=== PATIENT | female | born 1975 | race Caucasian/White ===

== ENCOUNTER → 2019-01-15 10:56 | Outpatient (CLI) | payer OTHER, SELFPAY ==
[2019-01-15 13:03] LABS: RBC Urine None Seen (0-5/HPF)
[2019-01-15 13:23] LABS: Amorphous Sediment Urine 1+; Bacteria Urine Occasional (0-1); Culture Indicated Urine Specimen Cultured; Squamous Epithelial Cell Urine 0-1 /HPF (0-5/HPF); WBC Urine 0-1/HPF (0-5/HPF)
== END ==
PROVIDERS: Visit Provider Registered Nurse
DX: R30.0 Dysuria (principal); R39.9 Unspecified symptoms and signs involving the genitourinary system
CPT/HCPCS: 81015; 87077; 87086; 87186

== ENCOUNTER → 2022-11-02 11:36 | Outpatient (CLI) | payer OTHER, SELFPAY ==
--- NOTE | 2022-11-02 | DI.MRI.S_ITS ---
PROCEDURE: MR KNEE RT WO/W CON INDICATIONS: RIGHT KNEE MASS TECHNIQUE: Noncontrast sagittal PD fast spin echo and T2 fast spin echo with fat saturation, sagittal 3-D FLASH with fat saturation; coronal T1 spin echo and PD fast spin echo with fat saturation, and axial T1 spin echo and PD fast spin echo with fat saturation through the knee. Post-contrast axial, coronal, and sagittal T1 spin echo with fat saturation through the knee. COMPARISON: [facility] [place], [place], XR KNEE 4+ VIEWS RIGHT, 10/21/2022, 9:23. FINDINGS: Image quality: Excellent. Anterior Cruciate Ligament: Intact. Posterior Cruciate Ligament: Intact. Medial Collateral Ligament: Intact. Lateral Collateral Ligament: Intact. Medial Meniscus: Intact. Lateral Meniscus: Mild free edge fibrillation at the body of the lateral meniscus. Medial and Lateral Tendons: The semimembranosus tendon insertions and meniscocapsular junction appear intact. Visualized portions of the pes anserinus tendons appear normal. No abnormal bursal fluid. The long and short heads of the biceps femoris tendon appear intact. The popliteus tendon appears intact. No signs of posterolateral corner injury. Iliotibial band appears normal. Anterior Structures: The quadriceps and patellar tendons appear intact. No patellar subluxation. No femoral trochlear dysplasia or ventral trochlear prominence. No edema in the infrapatellar fat pad. Bones: No acute trabecular bone injury or fracture. Medial Femorotibial Cartilage: Intact. Lateral Femorotibial Cartilage: Intact. Patellofemoral Cartilage: Mild partial-thickness cartilage irregularity is seen at the median ridge/lateral facet of the patella. Soft Tissues: A physiologic amount of joint fluid is present. There is a small nonenhancing medial popliteal cyst measuring up to 4.8 cm in superior inferior extent. The musculature surrounding the knee is normal in bulk. Mild nonspecific subcutaneous pretibial and prepatellar soft tissue edema. IMPRESSION: 1. Small medial popliteal cyst may account for the palpable abnormality. Recommend clinical correlation. No enhancing soft tissue mass. 2. Mild free edge fibrillation of the body of the lateral meniscus. No discrete meniscal tear. 3. Cruciate and collateral ligaments are intact. No acute trabecular bone injury or fracture. 4. 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 Approved by: Jules Ferrer M.D. on 11/02/2022 at 14:41
== END ==
PROVIDERS: PCP Nurse Practitioner Family; Referring Provider Orthopaedic Surgery; Visit Provider Orthopaedic Surgery
DX: M25.861 Other specified joint disorders, right knee (principal); M71.21 Synovial cyst of popliteal space [Baker], right knee; M22.41 Chondromalacia patellae, right knee
CPT/HCPCS: 73723; A9579